=== PATIENT | male | born 1985 | race Caucasian/White ===

== ENCOUNTER 2018-09-20 03:45 | Inpatient (IN) | payer OTHER ==
[~2018-09-20] VITALS: Ht 177.8 cm; Wt 111.6 kg
[2018-09-20] VITALS (11 sets, daily range): BP systolic 117–140; BP diastolic 61–81
--- NOTE | ~2018-09-20 | HC ---
[facility] [place] [address] CONSULTATION Name: FRANCA QUINONES Room #: 462-P ADM IN M.R.#: [id number] Admission: 09/20/18 Attend Phys: Ann Guerra, Discharge: Date of : 81 Report #: [id number] THIS REPORT FOR: //name// CC: FAM unknown Ann Guerra DATE OF SERVICE: 09/20/2018 CHIEF COMPLAINT: Tib-fib fracture. HISTORY OF PRESENT ILLNESS: This is a 32-year-old male patient who accidentally slipped off a curb sustaining an open tibia and fibular fracture. He was taken to the operating room for washout and also underwent fasciotomy for compartment syndrome. I have been asked to see him with regard to wound care. PAST MEDICAL HISTORY: Negative for significant illness or injury. MEDICATIONS: Reviewed. ALLERGIES: LEVAQUIN. SOCIAL HISTORY: Positive for occasional alcohol use. Negative for tobacco use. FAMILY HISTORY: Noncontributory. REVIEW OF SYSTEMS: CONSTITUTIONAL: The patient denies fever, chills or weight loss. NEUROLOGICAL: The patient denies focal weakness, numbness or tingling. EYES: The patient denies visual changes, redness, or drainage. ENT: The patient denies earache, nasal drainage or sore throat. CARDIOVASCULAR: The patient denies chest pain, palpitations or diaphoresis. PULMONARY: The patient denies cough or shortness of breath. GASTROINTESTINAL: The patient denies nausea, vomiting or abdominal pain. ORTHOPEDIC: The patient does complain of severe pain in his right leg. Other systems in a 14-point review of systems are negative. PHYSICAL EXAMINATION: VITAL SIGNS: Include temperature 98.9, pulse 104, respiratory rate of 18, blood pressure 140/65. GENERAL: This is a well-developed, well-nourished male patient who appears to be in no distress. HEENT: Head is normocephalic. Nose and throat clear. NECK: Supple. LUNGS: Clear. HEART: Regular rhythm. ABDOMEN: Soft. Bowel sounds present. [facility] [address] [place] [address] CONSULTATION Name: JONIWINSTONALPESH Room #: 462-P ADM IN M.R.#: [id number] Admission: 09/20/18 Attend Phys: Ann Guerra, Discharge: Date of : 81 Report #: [id number] EXTREMITIES: Examination of the lower extremities demonstrates 2 large fasciotomy wounds involving the right leg. The fracture is unstable without a splint. Neurovascular exam is intact distally. NEUROLOGIC: The patient is alert, oriented and appropriate. CLINICAL IMPRESSION: 1. Open tibia and fibular fracture of right lower extremity. 2. Compartment syndrome, right lower extremity, status post fasciotomy. RECOMMENDATIONS: At this point in time, due to moderate bleeding, a wound VAC device has been discontinued. We will pack him with moist gauze and Xeroform with a light compression bandaging and continue with the splinting. He will require open reduction and internal fixation and hopefully closure of the surgical wounds. I appreciate being asked to see him in consultation. By: [id number] Tenzin Chanel MD /nt
--- NOTE | ~2018-09-20 | O ---
[facility] [place] [address] OPERATIVE REPORT Name: FRANCA QUINONES Room #: 462-P ADM IN M.R.#: [id number] Admission: 09/20/18 Attend Phys: Ann Guerra, Discharge: Date of : 81 Report #: [id number] THIS REPORT FOR: //name// CC: FAM unknown Ann Guerra DATE OF SERVICE: 09/20/2018 PREOPERATIVE DIAGNOSES: 1. Possible grade 1 open tib-fib fracture. 2. Right leg compartment syndrome. POSTOPERATIVE DIAGNOSES: 1. Right leg compartment syndrome. 2. Closed right tib-fib fracture. PROCEDURE PERFORMED: Right leg fasciotomy x 4 compartments. SURGEON: Ann Guerra MD. ANESTHESIA: General mask anesthesia. ESTIMATED BLOOD LOSS: Approximately 100 mL. TOURNIQUET TIME: 29 minutes. COMPLICATIONS: None. CONDITION: Stable. DISPOSITION: Recovery room. INDICATIONS: The patient is a 32-year-old male who sustained a right tib-fib fracture. He was seen by the Emergency Department. Multiple pressure measurements were obtained, the highest being 60 mmHg in the deep posterior compartment. The other compartments range from 30-40. His diastolic blood pressure was approximately 69 per the ER physician's report. I was called in emergently to perform fasciotomy. There was a question of a possible poke hole in the lateral aspect of the leg making me there is an open fracture. We discussed the diagnosis as well as treatment options with the patient and his mom and myself and we discussed the risks, benefits, alternatives and complications including but not limited to infection and wound healing problems. We discussed that he will need at least 1 more surgery in order to close the wounds and provide definitive fixation of the fracture. This will be done by one of my [facility] partners. The correct extremity was identified and labeled by myself after verbal confirmation of the patient as well as visual [facility] [address] [place] [address] OPERATIVE REPORT Name: FRANCA QUINONES Room #: 462-P ADM IN [facility].#: [id number] Admission: 09/20/18 Attend Phys: Ann Guerra, Discharge: Date of : 81 Report #: [id number] confirmation and signed informed consent. DESCRIPTION OF PROCEDURE: The patient was brought back to the OR and placed in the supine position. He received preoperative antibiotics. Tourniquet was placed over padding on the patient's right lower extremity, right thigh. The right lower extremity was sterilely prepped and draped in usual fashion. Final timeout was taken to verify correct patient, operative procedure, operative site and all concurred. Multiple puncture sites from the compartment pressure measuring were identified. There were some superficial abrasions laterally. However, no open fracture was noted. The anterior and lateral compartments were the most tense. The posterior compartments were fairly tense as well. The leg was elevated, but not exsanguinated and the tourniquet was inflated. Next, a 20 cm incision was made in the line from the fibula to the lateral malleolus. Dissection was carried down through subcutaneous tissue with tenotomy scissors. The anterior compartment was identified and incised. It was bulging and bulged out immediately upon excision over the fascia along the entire incision. The muscle was pink and did respond to cautery. The lateral compartment was then released and it was bulging and bulged out, and was under extreme pressure and the muscle was pink and it did respond to cautery. Attention placed to the medial side, a 20 cm medial incision was made about a centimeter posterior to the medial edge of the tibia. Dissection was carried down through subcutaneous tissue with tenotomy scissors. Careful attention was placed to avoid any other structures. The deep and superficial fascial compartments were ruptured and a direct communication was felt to the fracture site. There was more muscle damage. The superficial and deep posterior compartments were released. The wounds were then thoroughly irrigated. The muscle in the superficial and deep posterior looked good and responded to cautery by eleno. The wound was then thoroughly irrigated with 3 liters of antibiotic saline using a Pulsavac. Wound VAC was applied. The suction was obtained. However, the posterior fasciotomy site had a moderate amount of bleeding, this was watched in the recovery room. The wound VAC team was consulted and eventually the wound VAC was removed and changed to a dressing due to the bleeding, most likely due to this direct communication with the fracture site. The posterior slab splint was applied. All toes were pink with brisk capillary refill at the conclusion of the case after deflation of the tourniquet. All sponge and needle counts were correct. The patient was transferred to postoperative recovery room in stable condition. By: [id number] Ann Guerra MD /roni
--- NOTE | ~2018-09-20 | H ---
[facility] [address] [place] [address] HISTORY AND PHYSICAL Name: FRANCA QUINONES Room #: 462-P ADM IN M.R.#: [id number] Admission: 09/20/18 Attend Phys: Ann Guerra, Discharge: Date of : 81 Report #: [id number] THIS REPORT FOR: //name// CC: FAM unknown Ann Guerra ADDENDUM PHYSICAL EXAMINATION HEENT: Unremarkable. HEART: Regular rate and rhythm. LUNGS: Clear. ABDOMEN: Soft. <ELECTRONICALLY SIGNED> By: Ann Guerra MD 09/20/18 1644 [id number] [id number] Ann Guerra MD /nt
--- NOTE | ~2018-09-20 | O ---
[facility] [place] [address] OPERATIVE REPORT Name: FRANCA QUINONES Room #: 462-P ADM IN M.R.#: [id number] Admission: 09/20/18 Attend Phys: Ann Guerra, Discharge: Date of : 81 Report #: [id number] THIS REPORT FOR: //name// CC: FAM unknown Ann Guerra DATE OF SERVICE: 09/22/2018 PREOPERATIVE DIAGNOSES: 1. Right leg, status post fasciotomies. 2. Right tibia and fibula fractures. POSTOPERATIVE DIAGNOSES: 1. Right leg, status post fasciotomies. 2. Right tibia and fibula fractures. PROCEDURE: 1. Right leg irrigation and debridement with wound closure. 2. Right leg intramedullary nail of the tibia. SURGEON: Soren Vu M.D. REPAIRER GENERAL: Anna Martinez. ANESTHESIA: General. ESTIMATED BLOOD LOSS: 50 mL. DRAINS: No drains. TOURNIQUET TIME: 67 minutes. DESCRIPTION OF PROCEDURE: The patient brought to the operating room where he was placed under general anesthesia. Once under adequate general anesthesia, his right lower extremity was prepped and draped in a sterile manner. The extremity was elevated and a tourniquet placed to 300 mmHg. The patient's 2 fasciotomy sites were then irrigated copiously with normal saline solution. These were provisionally minimally closed with 2-0 nylon sutures in the central portion of the wounds. Subsequent to this, an anterior incision over the patellar tendon was then made. This was dissected down through soft tissue to the peritenon, which was then incised and the tendon was then swept aside to allow for localization of the anterior point of the tibial nail. Utilizing fluoroscopy for guidance, the cannulated trocar was then placed in the central portion of the proximal tibia. The guidewire was then placed down the shaft of the tibia. Subsequent reaming to an 11 mm to allow for a 10 mm tibial nail was then achieved. A 10 mm x 345 mm in length tibial nail was then placed. [address] [address] OPERATIVE REPORT Name: FRANCA QUINONES Room #: 462-P ADM IN M.R.#: [id number] Admission: 09/20/18 Attend Phys: Ann Guerra, Discharge: Date of : 81 Report #: [id number] Proximal and distal locking screws were then placed utilizing fluoroscopy for guidance. Excellent fixation and alignment of the tibial fracture sites were achieved. The wounds were all irrigated copiously and closed with 2-0 PDS in the subcutaneous tissues and mell for the skin. The wounds were dressed with Xeroform, 4 x 4s, and a sterile soft compressive dressing was placed. A short-leg posterior splint was placed as well. Tourniquet was let down at 67 minutes; it had been let down during the reaming portion and nail placing portion of the procedure. Toes were pink and warm with good capillary refill. There were no complications from the procedure. The patient tolerated the procedure well and went to recovery room without incident. <ELECTRONICALLY SIGNED> By: Soren Vu MD 09/24/18 1605 [id number] 1519 Soren Vu MD /nt
--- NOTE | ~2018-09-20 | H ---
[facility] [place] [place] [address] HISTORY AND PHYSICAL Name: FRANCA QUINONES Room #: 462-P ADM IN M.R.#: [id number] Admission: 09/20/18 Attend Phys: Ann Guerra, Discharge: Date of : 81 Report #: [id number] THIS REPORT FOR: //name// CC: FAM unknown Ann Guerra HISTORY OF PRESENT ILLNESS: The patient is a 32-year-old male who was intoxicated. Apparently, he slipped and fell on a curb wrong. He was brought into the emergency department. Apparently, he was fairly belligerent, but has calmed. He was seen by emergency department physician. A poke hole was noted over the lateral aspect of the distal fibula and the fracture was diagnosed to be open. The patient has significant amount of pain. Compartments are pressures were measured and deep posterior compartment measured approximately 60s, superficial posterior approximately 30s, anterolateral approximately 30s, performed by the ER physician. I was called on an emergent basis. X-ray showed a tib-fib fracture. The patient complains only of right leg pain. REVIEW OF SYSTEMS: NEUROLOGIC: Denies numbness or tingling. MUSCULOSKELETAL: Denies other injuries. PAST MEDICAL HISTORY: Negative. PAST SURGICAL HISTORY: Gastric bypass. MEDICATIONS: vitamins. ALLERGIES: No known drug allergies. 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 He lives by himself. His mom is present at his bedside. LABORATORY STUDIES: Done on 09/20/2018 at 4 a.m. showed white blood cells 7.1, hemoglobin 15.3, hematocrit 45.8, platelet count is 158. Chemistry is grossly normal. Alcohol level at 4 a.m. was 305. PHYSICAL EXAMINATION: GENERAL: He is alert and oriented. He interacts appropriately. He is a well-developed, well-nourished, pleasant male in mild distress. VITAL SIGNS: Most recent vital signs show a temperature of 37.1, pulse rate 104, respiration rate 18, blood pressure 117/69, pulse oximetry is 95% on room air. EXTREMITIES: Examination of his right lower extremity, he has brisk capillary refill. I am actually able to feel dorsalis pedis pulse. He does wiggle his toes, but he does have a significant amount of tightness in all the compartments of the leg. Splint was not [place] [address] HISTORY AND PHYSICAL Name: FRANCA QUINONES Room #: 462-P [facility].#: [id number] Admission: 09/20/18 Attend Phys: Ann Guerra, Discharge: Date of : 81 Report #: [id number] RADIOGRAPHS: AP and lateral of the right hip that show the junction of middle distal tibia and fibula fractures. On the tibia, there is a butterfly fragment. It is relatively well aligned. IMPRESSION AND PLAN: Right grade 1 open tib-fib fracture with compartment syndrome as diagnosed by the emergency physician based on compartment pressures. Recommend incision and debridement with release of compartments. I discussed the typical procedure, as well as postoperative course. He will be here for at least a day or two and he will require second surgery most likely to close the compartments, as well as for surgical fixation. We discussed in general the typical postoperative course of 8-12 weeks of fracture healing. He will be on crutches and one of my partners will most likely perform a definitive procedure. Questions were encouraged and answered to the best of my ability. The risks, benefits, alternatives, and complications were discussed with this initial procedures including infection and wound healing problems. Informed consent was obtained. <ELECTRONICALLY SIGNED> By: Ann Guerra MD 09/20/18 1644 0631 0719 Ann Guerra MD /nt
[2018-09-20] MEDS ORDERED: UNICOMPLEX M TA1 TA1 PO (03:55)
[2018-09-20 04:15] LABS: ABSOLUTE NEUTROPHILS 4.6 thou/uL (1.4-8.2); BASOPHILS 0.8 % (0.0-2.0); EOSINOPHILS 0.8 % (0.0-3.0); HEMATOCRIT 45.8 % (42.0-52.0); HEMOGLOBIN 15.3 gm/dL (14.0-18.0); LYMPHOCYTES 29.1 % (24.0-44.0); MCH 32.4 pg (26.0-34.0); MCHC 33.5 g/dL (28.0-37.0); MCV 96.8 fL (80.0-100.0); PLATELET COUNT 158 thou/uL (150-400); POLYS 64.3 % (36.0-66.0); RBC 4.73 mil/uL (4.50-6.00); RDW 13.3 % (10.5-14.5); WBC 7.1 thou/uL (4.0-11.0)
[2018-09-20 04:23] LABS: CALCIUM 8.4 mg/dL (8.5-10.1); CREATININE 1.2 mg/dL (0.7-1.3); POTASSIUM 3.8 mmol/L (3.5-5.1)
[2018-09-20 11:54] LABS: FOLIC ACID 3.7 ng/mL (8.6-58.9); TSH 1.81 uIU/mL (0.358-3.740)
[2018-09-20 17:40] LABS: URINE BILIRUBIN NEGATIVE (Negative); URINE BLOOD TRACE (Negative); URINE CLARITY CLEAR; URINE COLOR YELLOW; URINE GLUCOSE-RANDOM* NEGATIVE (Negative); URINE KETONES 1+ (Negative); URINE LEUKOCYTES NEGATIVE (Negative); URINE NITRITE NEGATIVE (Negative); URINE PROTEIN (DIPSTICK) NEGATIVE (Negative); URINE UROBILINOGEN 0.2 E.U./dl (0.2-1.0)
[2018-09-20 17:48] LABS: AMP/METHAMP Negative (Negative); BARBITURATES Negative (Negative); BENZODIAZEPINES Negative (Negative); COCAINE Negative (Negative); METHADONE Negative (Negative); OPIATES POSITIVE (Negative); PCP Negative (Negative)
[2018-09-21 00:07] VITALS: BP 124/70
[2018-09-21 02:30] VITALS: BP 124/70
[2018-09-21 02:41] VITALS: BP 138/70
[2018-09-21 06:05] LABS: ABSOLUTE NEUTROPHILS 6.1 thou/uL (1.4-8.2); BASOPHILS 0.1 % (0.0-2.0); LYMPHOCYTES 11.2 % (24.0-44.0); MCH 32.4 pg (26.0-34.0); MCHC 33.5 g/dL (28.0-37.0); MCV 96.6 fL (80.0-100.0); MONOCYTES 10.1 % (1.0-8.0); PLATELET COUNT 142 thou/uL (150-400); POLYS 78.6 % (36.0-66.0); RBC 4.04 mil/uL (4.50-6.00); RDW 13.6 % (10.5-14.5); WBC 7.7 thou/uL (4.0-11.0)
[2018-09-21 06:21] LABS: CALCIUM 8.6 mg/dL (8.5-10.1); CREATININE 0.9 mg/dL (0.7-1.3); POTASSIUM 4.5 mmol/L (3.5-5.1)
[2018-09-21 06:22] LABS: HEMOGLOBIN 13.1 gm/dL (14.0-18.0)
[2018-09-21 08:01] VITALS: BP 125/66
[2018-09-21 13:35] VITALS: BP 119/70
[2018-09-21 19:19] VITALS: BP 127/63
[2018-09-22] VITALS (7 sets, daily range): BP systolic 114–149; BP diastolic 63–82
[2018-09-22 05:31] LABS: CALCIUM 8.3 mg/dL (8.5-10.1); MAGNESIUM 1.9 mg/dL (1.8-2.4); PHOSPHORUS 3.7 mg/dL (2.5-4.9); POTASSIUM 4.1 mmol/L (3.5-5.1)
[2018-09-23 04:36] VITALS: BP 123/84
[2018-09-23 06:13] LABS: HEMATOCRIT 32.8 % (42.0-52.0); MCH 32.4 pg (26.0-34.0); MCHC 33.5 g/dL (28.0-37.0); MCV 96.6 fL (80.0-100.0); RBC 3.4 mil/uL (4.50-6.00); RDW 13.5 % (10.5-14.5); WBC 6.9 thou/uL (4.0-11.0)
[2018-09-23 06:23] LABS: CALCIUM 8.2 mg/dL (8.5-10.1); CREATININE 0.8 mg/dL (0.7-1.3); POTASSIUM 4.2 mmol/L (3.5-5.1)
[2018-09-23 08:35] VITALS: BP 118/71
[2018-09-23 14:35] VITALS: BP 126/66
[2018-09-24 06:40] LABS: HEMATOCRIT 28.9 % (42.0-52.0); MCH 33.5 pg (26.0-34.0); MCHC 34.5 g/dL (28.0-37.0); RBC 2.98 mil/uL (4.50-6.00); RDW 14.1 % (10.5-14.5); WBC 6.3 thou/uL (4.0-11.0)
[2018-09-24 06:42] LABS: CREATININE 0.9 mg/dL (0.7-1.3); POTASSIUM 3.9 mmol/L (3.5-5.1)
[2018-09-24 08:00] VITALS: BP 129/76
[2018-09-24 16:00] VITALS: BP 133/70
[2018-09-24 19:14] VITALS: BP 123/59
[2018-09-25 05:34] VITALS: BP 129/58
[2018-09-25 06:22] LABS: HEMATOCRIT 30.9 % (42.0-52.0); HEMOGLOBIN 10.6 gm/dL (14.0-18.0); MCH 33.2 pg (26.0-34.0); MCHC 34.3 g/dL (28.0-37.0); MCV 96.8 fL (80.0-100.0); RBC 3.19 mil/uL (4.50-6.00); RDW 13.9 % (10.5-14.5); WBC 5.9 thou/uL (4.0-11.0)
[2018-09-25 06:33] LABS: CALCIUM 8.4 mg/dL (8.5-10.1); CREATININE 0.8 mg/dL (0.7-1.3); POTASSIUM 3.9 mmol/L (3.5-5.1)
[2018-09-25 07:35] VITALS: BP 118/62
[2018-09-25] MEDS ORDERED: ASA5UEC PO (10:09)
[2018-09-25] MEDS ORDERED: NORCO 10-325 T1 EACH PO (10:09)
[2018-09-25] MEDS ORDERED: COLACE100 MG PO (10:10)
[2018-09-25] MEDS ORDERED: OXYCODONE HCL10 MG PO (10:10)
[2018-09-25 13:56] VITALS: BP 118/62
== END 2018-09-25 14:00 | disposition home or self-care (01) | DRG 907 ==
LOC: ER 03:45 → 4W 06:04 → EROBS 06:04 → TBACV 06:07 → 4W 07:54
PROVIDERS: Emergency Medicine; Hospitalist; Internal Medicine; Orthopaedic Surgery Foot and Ankle Surgery; Orthopaedic Surgery Hand Surgery; Student in an Organized Health Care Education/Training Program
DX: T79.A21A Traumatic compartment syndrome of right lower extremity, initial encounter (principal); S82.401B Unspecified fracture of shaft of right fibula, initial encounter for open fracture type I or II; S82.201B Unspecified fracture of shaft of right tibia, initial encounter for open fracture type I or II; F10.10 Alcohol abuse, uncomplicated; Z98.84 Bariatric surgery status; Z88.1 Allergy status to other antibiotic agents; Z79.82 Long term (current) use of aspirin; Z79.899 Other long term (current) drug therapy; Z23 Encounter for immunization; W01.0XXA Fall on same level from slipping, tripping and stumbling without subsequent striking against object, initial encounter; Y93.89 Activity, other specified; Y92.89 Other specified places as the place of occurrence of the external cause; Y99.8 Other external cause status
CPT/HCPCS: 10040; 50010; 50101; 50386; 50635; 50643; 50970; 51412; 53078; 55430; 56524; 56525; 56526; 57091; 62110; 62900; 70005